=== PATIENT | female | born 1945 | race Caucasian/White ===

== ENCOUNTER → 2021-02-16 | Outpatient (CLI) | payer MEDICARE ==
[~2021-02-16] MED LIST: ACYCLOVIR400 MG PO; CEFUROXIME250 MG PO; RECLAST; TOFRANIL 50 MG50 MG PO; ZOCOR20 MG PO; [UNRECOGNIZED DRUG - OTHER] PO
== END ==
LOC: KOH-I 02-12 13:00
DX: R10.30 Lower abdominal pain, unspecified (principal); M16.0 Bilateral primary osteoarthritis of hip
CPT/HCPCS: 72195

== ENCOUNTER → 2021-03-12 | Outpatient (CLI) | payer MEDICARE | LOC: OPSV 09:00 | DX: M81.0 Age-related osteoporosis without current pathological fracture (principal) | CPT/HCPCS: 96365 ==

== ENCOUNTER → 2021-11-12 | Outpatient (CLI) | payer MEDICARE | LOC: MRI 11:46 | DX: S73.101A Unspecified sprain of right hip, initial encounter (principal); M16.11 Unilateral primary osteoarthritis, right hip; M25.551 Pain in right hip; M25.451 Effusion, right hip | CPT/HCPCS: 36415; 73723; 82565; 84520; A9577 ==

== ENCOUNTER → 2021-12-10 | Outpatient (CLI) | payer MEDICARE | END | disposition home or self-care (01) | LOC: RAD 08:51 | PROC: 3E0U3BZ Introduction of Anesthetic Agent into Joints, Percutaneous Approach (ICD-10-PCS; principal; 2021-12-10) | PROC: BQ101ZZ Fluoroscopy of Right Hip using Low Osmolar Contrast (ICD-10-PCS; 2021-12-10) | DX: M16.11 Unilateral primary osteoarthritis, right hip (principal) | CPT/HCPCS: J3301; Q9967 ==

== ENCOUNTER → 2022-02-23 | Outpatient (CLI) | payer MEDICARE ==
[~2022-02-23] MED LIST changes: +CALCIUM 600 +1 EAC3 PO; +FOSAMAX70 MG PO; +ROXICODONE5 MG PO; +TERBINAFINE HC250 MG PO
[2022-02-23 14:18] LABS: BUN/CREATININE RATIO 21 (0-10)
== END ==
LOC: LAB 13:24
PROVIDERS: Orthopaedic Surgery
DX: Z01.812 Encounter for preprocedural laboratory examination (principal)
CPT/HCPCS: 36415; 80048; 86850; 86900; 86901

== ENCOUNTER → 2022-02-24 | Day surgery (SDC) | payer MEDICARE ==
[~2022-02-24] VITALS: Ht 165.1 cm; Wt 65.3 kg
== END | disposition home or self-care (01) ==
LOC: OR 07:13 → EDSTATUS 11:15
DX: M16.11 Unilateral primary osteoarthritis, right hip (principal); G89.29 Other chronic pain; E78.5 Hyperlipidemia, unspecified; M81.0 Age-related osteoporosis without current pathological fracture; Z79.899 Other long term (current) drug therapy; Z20.822 Contact with and (suspected) exposure to COVID-19
CPT/HCPCS: 72170; 73501; 76000; 97116; 97162; 97166; 97535; C1776; J0690; J1100; J1170; J2001; J2274; J2405; J2704; J3010; J7050; J7120